=== PATIENT | female | born 1995 | race Caucasian/White ===

== ENCOUNTER 2018-02-24 12:58 | Inpatient (IN) | payer OTHER, BC ==
[2018-02-24 13:21] VITALS: BMI 24.0
[2018-02-25 10:11] VITALS: BP 122/79; PULSE 75; TEMP 98.2
== END 2018-02-25 11:17 | disposition home or self-care (01) | DRG 343 ==
LOC: FER 12:58 → J4S 19:55
PROVIDERS: ADMIT Surgery; ATTEND Surgery
PROC: 0DTJ4ZZ Resection of Appendix, Percutaneous Endoscopic Approach (ICD-10-PCS; principal; 2018-02-24)
PROC: 3E1M38Z Irrigation of Peritoneal Cavity using Irrigating Substance, Percutaneous Approach (ICD-10-PCS; 2018-02-24)
DX: K35.80 Unspecified acute appendicitis (principal); E28.2 Polycystic ovarian syndrome
CPT/HCPCS: 36415; 74177-TC; 76856-TC; 80053; 81003; 84703; 85025; 87491; 87591; 88304-TC; 94010; 94760; 99283-25; J7030

== ENCOUNTER 2019-01-27 05:37 | Emergency (ER) | payer OTHER, BC ==
[2019-01-27 05:45] VITALS: BP 110/72; PULSE 84; TEMP 99; BMI 25.4
--- NOTE | 2019-01-27 05:46 | PDOC ---
History of Present Illness - General Chief Complaint: Pain, Acute Stated Complaint: SORE THROAT Time Seen by Provider: 01/27/19 05:41 History Source: Patient Exam Limitations: No Limitations - History of Present Illness Initial Comments: 01/27/19 05:42 This is a 23-year-old female who comes in complaining of cough, congestion and sore throat. Patient symptoms began approximately 3 days ago. Patient went to an urgent care center 2 days ago and was started on a Z-Sin she has taken for the last 2 days. 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 Allergies: as per nursing notes Past Medical History: none Social history: Lives with family. No smoking. No alcohol. No illicit drugs. Surgical history: None General: No fevers or chills, no weakness, no weight loss HEENT: No change in vision. No sore throat,. No ear pain CardioVascular: no chest discomfort. No shortness of breath Respiratory:+ cough, no wheezing. Gastrointestinal: no nausea, vomiting, diarrhea or constipation, No rectal bleeding Genitourinary: No dysuria, hematuria, or frequency Musculoskeletal: No joint or muscle pain or swelling Neurologic: No headache, vertigo, dizziness or loss of consciousness Psychiatric: nor depression Skin: No rashes or easy bruising Endocrine: no increased thirst or abnormal weight change Allergic: no skin or latex allergy All other systems reviewed and normal Exam: General: Well-nourished well-developed individual, no acute distress HEENT: Throat: There is some mild erythema posterior oropharynx otherwise a tonsils are normal there is no exudate Neck: Supple, no meningeal signs, there is one small nontender lymph node on the right submandibular area Eyes::Pupils equal reactive and round, extraocular motion intact Chest: Nontender to palpation Cardiac: S1-S2 normal, regular rate and rhythm, no murmurs rubs or gallops Respiratory: Lungs clear to auscultation bilateral Abdomen: Soft, nondistended, normal bowel sounds, there is no tenderness on palpation diffusely Extremities: Warm, dry, no cyanosis, clubbing, or edema Skin: No rashes Neuro: Alert and oriented x3, CN II - XII intact, nonfocal exam with normal strength, normal sensation, normal reflexes, normal gait, Psych: Normal mood and affect Assessment and plan: This is a 23-year-old female with upper respiratory tract type symptoms who comes in complaining of cough and sore throat. Patient exam otherwise normal her vitals are normal. Patient given Tessalon Perles for the cough and discharged Past History - Past Medical History Allergies/Adverse Reactions: Allergies Allergy/AdvReac Type Severity Reaction Status Date / Time No Known Allergies Allergy Verified 01/27/19 05:38 Home Medications: Ambulatory Orders Kariva 1 tab PO DAILY 02/24/18 Azithromycin [Zithromax Tri-Sin (3 DAYS) -] 250 mg PO DAILY 01/27/19 Benzonatate [Tessalon Pearls -] 100 mg PO TID #21 capsule 01/27/19 COPD: No Disorders: Yes (polycystic ovarian syndrome, history of ruptured cyst) - Reproductive History Polycystic Ovaries: Yes - Suicide/Smoking/Psychosocial Hx Smoking History: Never smoked Have you smoked in the past 12 months: No Hx Alcohol Use: No Drug/Substance Use Hx: No *DC/Admit/Observation/Transfer Diagnosis at time of Disposition: Viral upper respiratory illness - Discharge Dispostion Disposition: HOME Condition at time of disposition: Stable Decision to Admit order: No - Prescriptions Prescriptions: Benzonatate [Tessalon Pearls -] 100 mg PO TID #21 capsule - Referrals - Patient Instructions Additional Instructions: For the cough take Tessalon Perles one as often as 3 times a day which should also help with the sore throat as she will not be coughing is much. Return to the emergency department immediately with ANY new, persistent or worsening symptoms. Continue any medications as previously prescribed by your physician. You should follow up with your primary doctor as soon as possible regarding today's emergency department visit. . Please make sure your doctor reviews the results of your emergency evaluation. Thank you for coming to the Emergency Department today for your care. It was a pleasure to see you today. Please note that your evaluation is INCOMPLETE until you follow-up with your doctor. - Post Discharge Activity Forms/Work/School Notes: Back to School
== END 2019-01-27 05:57 | disposition home or self-care (01) ==
LOC: FER 05:37
DX: J06.9 Acute upper respiratory infection, unspecified (principal); B97.89 Other viral agents as the cause of diseases classified elsewhere; E28.2 Polycystic ovarian syndrome
CPT/HCPCS: 99281-25

== ENCOUNTER 2021-03-17 21:40 | Emergency (ER) | payer BC, OTHER ==
[2021-03-17 21:56] VITALS: BP 124/84; PULSE 79; TEMP 99.7; BMI 25.4
== END 2021-03-17 23:51 | disposition home or self-care (01) ==
LOC: FER 21:40
DX: S22.31XA Fracture of one rib, right side, initial encounter for closed fracture (principal)
CPT/HCPCS: 71046-TC-FY; 71101-TC-RT-FY; 81025; 85379; 99284-25